=== PATIENT | male | born 1940 | race Caucasian/White ===

== ENCOUNTER 2018-10-05 13:16 | Inpatient (IN) ==
[2018-10-05 14:06] LABS: Basophils % 0.5 % (0.0-0.8); Eosinophils # 0.1 10*3/uL (0.0-0.87); Eosinophils % 1.2 % (0.00-10.9); Hematocrit 28.6 VOL% (42.0-52.0); Hemoglobin 8.6 GM/DL (14.0-18.0); Immature Granulocytes % 0.2 %; Immature Granulocytes Absolute 0.01 #; Lymphocytes # 3.5 10*3/uL (1.4-4.0); Lymphocytes % 60.7 % (21.2-54.2); Mean Corpuscular HGB Conc 30.1 GM/DL (32-36); Mean Corpuscular Volume 97.3 FL (87-102); Mean Platelet Volume 11.4 FL (9.6-12.0); Monocytes % 5.9 % (1.7-12.7); Neutrophils % 31.5 % (38.7-73.9); Platelet Count 132 T/CUMM (130-400); Red Blood Count 2.94 MC/CUMM (3.8-5.5); Red Cell Distribution Width 17.2 % (9.3-17.3); White Blood Count 5.7 T/CUMM (4-12)
[2018-10-05 14:38] LABS: Calcium 9.2 MG/DL (8.5-10.1); Osmolality,Calculated 297.4 MOS/KG (273-304)
[2018-10-05 14:51] LABS: Anisocytosis 2+; Lymphocytes 57 % (20-55); Macrocytosis 2+; Metamyelocytes 1 %; Microcytosis 1+; Platelet Estimate Normal; Segmented Neutrophils 37 % (50-85); Total Cells Counted 100
[2018-10-05] MEDS ORDERED: INSULIN REGULAR 100 UNIT/ML IV ONE (15:00)
[2018-10-05] MEDS ORDERED: DEXTROSE 50% 25 GM/50 ML VIAL IV STA (15:00)
[2018-10-05] MEDS ORDERED: SODIUM BICARBONATE 50 MEQ/50 ML VIAL IV STA (15:00)
[2018-10-05] MEDS ORDERED: DEXTROSE 50% 25 GM/50 ML SYRINGE IV ONE (15:05)
[2018-10-05] MEDS ORDERED: SODIUM BICARBONATE 50 MEQ/50 ML SYRINGE IV ONE (15:07)
[2018-10-05] MEDS ORDERED: ONDANSETRON 4 MG/2 ML VIAL IV PRN (16:20)
[2018-10-05] MEDS ORDERED: SODIUM CHLORIDE 0.9% 1,000 ML IV SCH (16:30)
[2018-10-05] MEDS: SODIUM BICARBONATE 650 MG TABLET PO SCH (22:46)
[2018-10-05] MEDS: FERROUS SULFATE 325 MG TABLET PO SCH (22:46)
[2018-10-06 04:30] LABS: Basophils % 0.6 % (0.0-0.8); Eosinophils # 0.1 10*3/uL (0.0-0.87); Eosinophils % 1.3 % (0.00-10.9); Hematocrit 26.4 VOL% (42.0-52.0); Hemoglobin 7.9 GM/DL (14.0-18.0); Immature Granulocytes % 0.2 %; Immature Granulocytes Absolute 0.01 #; Lymphocytes # 3.4 10*3/uL (1.4-4.0); Lymphocytes % 64.2 % (21.2-54.2); Mean Corpuscular HGB Conc 29.9 GM/DL (32-36); Mean Corpuscular Volume 96.7 FL (87-102); Mean Platelet Volume 11.5 FL (9.6-12.0); Monocytes % 7.5 % (1.7-12.7); Neutrophils % 26.2 % (38.7-73.9); Platelet Count 122 T/CUMM (130-400); Red Blood Count 2.73 MC/CUMM (3.8-5.5); Red Cell Distribution Width 17.2 % (9.3-17.3); White Blood Count 5.3 T/CUMM (4-12)
[2018-10-06 04:54] LABS: Calcium 8.6 MG/DL (8.5-10.1)
[2018-10-06 04:56] LABS: % Iron Saturation 20.5 % (18-50); Ferritin 157.6 ng/ml (26-388)
[2018-10-06 05:03] LABS: Anisocytosis 1+; Atypical Lymphocytes Few; Eosinophils 5 % (0-10); Hypochromasia 1+; Lymphocytes 61 % (20-55); Macrocytosis 1+; Platelet Estimate Adequate; Segmented Neutrophils 26 % (50-85); Total Cells Counted 100
[2018-10-06 06:10] LABS: Folate 3.7 NG/ML (5.4-24.0); Vitamin B12 444 PG/ML (211-911)
[2018-10-06 06:28] LABS: Sedimentation Rate-Westergren 118 MM/HR (0-20)
[2018-10-06] MEDS ORDERED: SODIUM POLYSTYRENE SULFATE 15 GM/60 ML BOTTLE PO SCH (07:00)
[2018-10-06] MEDS ORDERED: TAMSULOSIN 0.4 MG CAPSULE PO SCH (09:00)
[2018-10-06] MEDS: CLOPIDOGREL 75 MG TABLET PO SCH (09:01)
[2018-10-06] MEDS: SODIUM BICARBONATE 650 MG TABLET PO SCH ×3 (09:01→21:32)
[2018-10-06] MEDS: LEVOTHYROXINE 25 MCG TABLET PO SCH (09:01)
[2018-10-06] MEDS: DULoxetine 30 MG CAPSULE PO SCH (09:01)
[2018-10-06] MEDS: ARIPiprazole 10 MG TABLET PO SCH (09:01)
[2018-10-06] MEDS: PANTOPRAZOLE 40 MG TABLET PO SCH (09:02)
[2018-10-06] MEDS: FERROUS SULFATE 325 MG TABLET PO SCH ×2 (09:02→21:32)
[2018-10-06 10:25] LABS: Hemoglobin A1 (Alkaline) 96.7 % (96.5-98.5); Hemoglobin A2 (Alkaline) 3.3 % (1.5-3.5)
[2018-10-06] MEDS: SODIUM BICARB INJ 100 MEQ in DEXTROSE 5% 1,000 ML IV SCH (14:09)
[2018-10-06] MEDS: HYOSCYAMINE 0.125 MG TABLET PO SCH (21:32)
[2018-10-07] MEDS: SODIUM BICARB INJ 100 MEQ in DEXTROSE 5% 1,000 ML IV SCH ×3 (00:08→20:40)
[2018-10-07 05:01] LABS: Basophils % 0.5 % (0.0-0.8); Eosinophils # 0.1 10*3/uL (0.0-0.87); Eosinophils % 1.5 % (0.00-10.9); Hematocrit 26.5 VOL% (42.0-52.0); Lymphocytes % 73.4 % (21.2-54.2); Mean Corpuscular HGB Conc 30.2 GM/DL (32-36); Mean Corpuscular Volume 94.3 FL (87-102); Mean Platelet Volume 11.4 FL (9.6-12.0); Monocytes % 7.4 % (1.7-12.7); Neutrophils % 17.2 % (38.7-73.9); Platelet Count 122 T/CUMM (130-400); Red Blood Count 2.81 MC/CUMM (3.8-5.5); Red Cell Distribution Width 17.1 % (9.3-17.3); White Blood Count 4.1 T/CUMM (4-12)
[2018-10-07 05:25] LABS: Calcium 8.2 MG/DL (8.5-10.1); Osmolality,Calculated 291.4 MOS/KG (273-304)
[2018-10-07 05:53] LABS: Lymphocytes 76 % (20-55); Segmented Neutrophils 23 % (50-85); Total Cells Counted 100
[2018-10-07 05:54] LABS: Hypochromasia 1+; Microcytosis 1+; Platelet Estimate Decreased
[2018-10-07 05:55] LABS: Polychromasia Few
[2018-10-07] MEDS: LEVOTHYROXINE 25 MCG TABLET PO SCH (06:34)
[2018-10-07] MEDS: DULoxetine 30 MG CAPSULE PO SCH (09:06)
[2018-10-07] MEDS: CLOPIDOGREL 75 MG TABLET PO SCH (09:07)
[2018-10-07] MEDS: HYOSCYAMINE 0.125 MG TABLET PO SCH ×4 (09:07→20:40)
[2018-10-07] MEDS: ARIPiprazole 10 MG TABLET PO SCH (09:07)
[2018-10-07] MEDS: amLODIPine 10 MG TABLET PO SCH (09:07)
[2018-10-07] MEDS: PHENAZOPYRIDINE 95 MG TABLET PO SCH ×3 (09:07→18:21)
[2018-10-07] MEDS: FERROUS SULFATE 325 MG TABLET PO SCH ×2 (09:07→20:40)
[2018-10-07] MEDS: TAMSULOSIN 0.4 MG CAPSULE PO SCH ×2 (09:07→20:40)
[2018-10-07] MEDS: ATORVASTATIN 20 MG TABLET PO SCH (09:07)
[2018-10-07] MEDS: SODIUM BICARBONATE 650 MG TABLET PO SCH ×3 (09:07→20:40)
[2018-10-07] MEDS: PANTOPRAZOLE 40 MG TABLET PO SCH (09:07)
[2018-10-07] MEDS: METOPROLOL TARTRATE 25 MG TABLET PO SCH ×2 (11:08→20:41)
[2018-10-08 04:44] LABS: Basophils % 0.8 % (0.0-0.8); Eosinophils # 0.1 10*3/uL (0.0-0.87); Eosinophils % 1.4 % (0.00-10.9); Hematocrit 24.7 VOL% (42.0-52.0); Hemoglobin 7.4 GM/DL (14.0-18.0); Mean Corpuscular Volume 95.7 FL (87-102); Mean Platelet Volume 10.8 FL (9.6-12.0); Monocytes % 9.2 % (1.7-12.7); Neutrophils % 7.6 % (38.7-73.9); Platelet Count 120 T/CUMM (130-400); Red Blood Count 2.58 MC/CUMM (3.8-5.5); Red Cell Distribution Width 16.7 % (9.3-17.3); White Blood Count 3.7 T/CUMM (4-12)
[2018-10-08 05:08] LABS: Eosinophils 8 % (0-10); Lymphocytes 80 % (20-55); Segmented Neutrophils 7 % (50-85); Total Cells Counted 100
[2018-10-08 05:09] LABS: Atypical Lymphocytes Few; Hypochromasia 1+; Microcytosis 1+; Platelet Estimate Decreased
[2018-10-08 05:15] LABS: Calcium 8.2 MG/DL (8.5-10.1); Osmolality,Calculated 285.7 MOS/KG (273-304)
[2018-10-08] MEDS: LEVOTHYROXINE 25 MCG TABLET PO SCH (06:24)
[2018-10-08] MEDS: SODIUM BICARB INJ 100 MEQ in DEXTROSE 5% 1,000 ML IV SCH (08:21)
[2018-10-08] MEDS ORDERED: FOLIC ACID 1 MG TABLET PO SCH (09:00)
[2018-10-08] MEDS ORDERED: ZALEPLON 5 MG CAPSULE PO PRN (10:11)
[2018-10-08] MEDS: PHENAZOPYRIDINE 95 MG TABLET PO SCH ×2 (10:16→12:56)
[2018-10-08] MEDS: DULoxetine 30 MG CAPSULE PO SCH (10:16)
[2018-10-08] MEDS: PANTOPRAZOLE 40 MG TABLET PO SCH (10:17)
[2018-10-08] MEDS: ATORVASTATIN 20 MG TABLET PO SCH (10:17)
[2018-10-08] MEDS: CLOPIDOGREL 75 MG TABLET PO SCH (10:17)
[2018-10-08] MEDS: amLODIPine 10 MG TABLET PO SCH (10:17)
[2018-10-08] MEDS: TAMSULOSIN 0.4 MG CAPSULE PO SCH (10:17)
[2018-10-08] MEDS: FERROUS SULFATE 325 MG TABLET PO SCH (10:17)
[2018-10-08] MEDS: SODIUM BICARBONATE 650 MG TABLET PO SCH (10:17)
[2018-10-08] MEDS: HYOSCYAMINE 0.125 MG TABLET PO SCH ×2 (10:22→12:56)
[2018-10-08] MEDS: METOPROLOL TARTRATE 25 MG TABLET PO SCH (10:23)
[2018-10-08] MEDS: ARIPiprazole 10 MG TABLET PO SCH (10:25)
[2018-10-08] MEDS ORDERED: amLODIPine 5 MG TABLET PO SCH (12:11)
[2018-10-08 13:05] VITALS: BP 136/61
[2018-10-08] MEDS ORDERED: METOPROLOL TARTRATE 50 MG TABLET PO SCH (21:00)
== END 2018-10-08 13:15 | disposition home health service (06) | DRG 683 ==
LOC: N.EDINP 13:16 → N.ED 13:16 → SUATTDRO 16:14 → N.4E 17:41
PROVIDERS: ADMIT Physician Assistant; ATTEND Hospitalist

== ENCOUNTER 2018-10-12 11:43 | Inpatient (IN) ==
[2018-10-12] MEDS ORDERED: SODIUM CHLORIDE 0.9% 500 ML IV STA (12:24)
[2018-10-12 12:31] LABS: Basophils # 0.1 10*3/uL (0.0-0.2); Eosinophils % 0.7 % (0.00-10.9); Hematocrit 23.2 VOL% (42.0-52.0); Hemoglobin 6.8 GM/DL (14.0-18.0); Lymphocytes # 1.7 10*3/uL (1.4-4.0); Mean Corpuscular HGB Conc 29.3 GM/DL (32-36); Mean Corpuscular Volume 97.1 FL (87-102); Mean Platelet Volume 11.1 FL (9.6-12.0); Monocytes % 38.6 % (1.7-12.7); Neutrophils % 2.7 % (38.7-73.9); Platelet Count 140 T/CUMM (130-400); Red Blood Count 2.39 MC/CUMM (3.8-5.5); Red Cell Distribution Width 15.2 % (9.3-17.3)
[2018-10-12 12:40] LABS: Calcium 8.6 MG/DL (8.5-10.1); Osmolality,Calculated 288.7 MOS/KG (273-304)
[2018-10-12 12:55] LABS: Band Neutrophils 1 % (0-10); Eosinophils 4 % (0-10); Lymphocytes 66 % (20-55); Total Cells Counted 100
[2018-10-12 12:56] LABS: Anisocytosis 1+; Platelet Estimate Adequate
[2018-10-12 12:57] LABS: Atypical Lymphocytes Few; Poikilocytosis Slight
[2018-10-12] MEDS ORDERED: PHENAZOPYRIDINE 95 MG TABLET PO PRN (13:24)
[2018-10-12] MEDS ORDERED: HYOSCYAMINE 0.125 MG TABLET PO PRN (13:24)
[2018-10-12 14:04] LABS: Apearance,Urine CLEAR (Clear); Bacteria,Urine Occasional /HPF (Few); Bilirubin,Urine Negative (Negative); Blood, Urine Moderate mg/dL (Negative); Glucose,Urine (UA) Negative (Negative); Ketones,Urine Negative (Negative); Mucus,Urine Occasional /LPF (Occasional); Nitrite,Urine Positive (Negative); Protein,Urine 100 MG/DL; RBC,Urine 35 /HPF (0-4); Urine Color Amber (Yellow); Urine Specific Gravity 1.014 (1.001-1.035); WBC,Urine 4 /HPF (0-6)
[2018-10-12] MEDS: SODIUM CHLORIDE 0.9% 1,000 ML IV SCH (14:14)
[2018-10-12] MEDS: ENOXAPARIN 30 MG/0.3 ML SYRINGE SUBCUT SCH (15:16)
[2018-10-12] MEDS ORDERED: ACETAMINOPHEN 325 MG TABLET PO PRN (15:32)
[2018-10-12] MEDS ORDERED: ONDANSETRON 4 MG/2 ML VIAL IV PRN (15:32)
[2018-10-12] MEDS ORDERED: SODIUM CHLORIDE 0.9% 1,000 ML IV PRN (15:35)
[2018-10-12] MEDS: cefTRIAXone 2,000 MG in SYRINGE 1 EACH IV SCH (16:15)
[2018-10-12] MEDS: TAMSULOSIN 0.4 MG CAPSULE PO SCH (20:38)
[2018-10-12] MEDS: SODIUM BICARBONATE 650 MG TABLET PO SCH (20:38)
[2018-10-12] MEDS: FERROUS SULFATE 325 MG TABLET PO SCH (20:38)
[2018-10-13] MEDS: SODIUM CHLORIDE 0.9% 1,000 ML IV SCH (04:34)
[2018-10-13 04:38] LABS: Basophils # 0.1 10*3/uL (0.0-0.2); Basophils % 1.4 % (0.0-0.8); Eosinophils % 0.3 % (0.00-10.9); Hematocrit 24.7 VOL% (42.0-52.0); Hemoglobin 7.4 GM/DL (14.0-18.0); Immature Granulocytes % 0.8 %; Immature Granulocytes Absolute 0.03 #; Lymphocytes # 2.3 10*3/uL (1.4-4.0); Lymphocytes % 65.2 % (21.2-54.2); Mean Corpuscular Volume 96.1 FL (87-102); Mean Platelet Volume 11.4 FL (9.6-12.0); Monocytes % 28.1 % (1.7-12.7); Neutrophils % 4.2 % (38.7-73.9); Platelet Count 140 T/CUMM (130-400); Red Blood Count 2.57 MC/CUMM (3.8-5.5); Red Cell Distribution Width 15.5 % (9.3-17.3); White Blood Count 3.6 T/CUMM (4-12)
[2018-10-13 05:02] LABS: Eosinophils 4 % (0-10); Hypochromasia 1+; Lymphocytes 69 % (20-55); Platelet Estimate Adequate; Segmented Neutrophils 1 % (50-85); Total Cells Counted 100
[2018-10-13 05:03] LABS: Atypical Lymphocytes Few; Microcytosis Slight; Ovalocytes Slight
[2018-10-13 05:17] LABS: Calcium 8.5 MG/DL (8.5-10.1); Osmolality,Calculated 291.4 MOS/KG (273-304)
[2018-10-13] MEDS: LEVOTHYROXINE 25 MCG TABLET PO SCH (06:01)
[2018-10-13] MEDS: DULoxetine 30 MG CAPSULE PO SCH (09:59)
[2018-10-13] MEDS: FOLIC ACID 1 MG TABLET PO SCH (09:59)
[2018-10-13] MEDS: ENOXAPARIN 30 MG/0.3 ML SYRINGE SUBCUT SCH (09:59)
[2018-10-13] MEDS: ARIPiprazole 10 MG TABLET PO SCH (09:59)
[2018-10-13] MEDS: FERROUS SULFATE 325 MG TABLET PO SCH ×2 (09:59→20:58)
[2018-10-13] MEDS: PANTOPRAZOLE 40 MG TABLET PO SCH (09:59)
[2018-10-13] MEDS: SODIUM BICARBONATE 650 MG TABLET PO SCH ×2 (09:59→20:58)
[2018-10-13] MEDS: cefTRIAXone 2,000 MG in SYRINGE 1 EACH IV SCH (16:20)
[2018-10-13] MEDS ORDERED: ZALEPLON 5 MG CAPSULE PO PRN (17:59)
[2018-10-13] MEDS: TAMSULOSIN 0.4 MG CAPSULE PO SCH (20:58)
[2018-10-14 01:15] LABS: Hematocrit 30.4 VOL% (42.0-52.0); Hemoglobin 9.1 GM/DL (14.0-18.0)
[2018-10-14 05:43] LABS: Basophils # 0.1 10*3/uL (0.0-0.2); Basophils % 1.9 % (0.0-0.8); Eosinophils # 0.2 10*3/uL (0.0-0.87); Eosinophils % 5.6 % (0.00-10.9); Hematocrit 28.9 VOL% (42.0-52.0); Hemoglobin 8.8 GM/DL (14.0-18.0); Immature Granulocytes % 0.8 %; Immature Granulocytes Absolute 0.03 #; Lymphocytes # 2.2 10*3/uL (1.4-4.0); Lymphocytes % 57.6 % (21.2-54.2); Mean Corpuscular HGB Conc 30.4 GM/DL (32-36); Mean Corpuscular Volume 94.4 FL (87-102); Mean Platelet Volume 10.9 FL (9.6-12.0); Neutrophils % 4.1 % (38.7-73.9); Platelet Count 165 T/CUMM (130-400); Red Blood Count 3.06 MC/CUMM (3.8-5.5); Red Cell Distribution Width 15.7 % (9.3-17.3); White Blood Count 3.7 T/CUMM (4-12)
[2018-10-14 06:10] LABS: Eosinophils 11 % (0-10); Hypochromasia 1+; Lymphocytes 55 % (20-55); Platelet Estimate Adequate; Segmented Neutrophils 4 % (50-85); Total Cells Counted 100
[2018-10-14 06:11] LABS: Atypical Lymphocytes Few; Microcytosis Slight
[2018-10-14 06:14] LABS: Calcium 9.1 MG/DL (8.5-10.1); Osmolality,Calculated 287.5 MOS/KG (273-304)
[2018-10-14] MEDS: LEVOTHYROXINE 25 MCG TABLET PO SCH (06:17)
[2018-10-14] MEDS: SODIUM CHLORIDE 0.9% 1,000 ML IV SCH (06:20)
[2018-10-14] MEDS ORDERED: CHOLECALCIFEROL 1,000 UNIT TABLET PO SCH (09:00)
[2018-10-14] MEDS: DULoxetine 30 MG CAPSULE PO SCH (09:39)
[2018-10-14] MEDS: ARIPiprazole 10 MG TABLET PO SCH (09:39)
[2018-10-14] MEDS: FOLIC ACID 1 MG TABLET PO SCH (09:40)
[2018-10-14] MEDS: PANTOPRAZOLE 40 MG TABLET PO SCH (09:40)
[2018-10-14] MEDS: SODIUM BICARBONATE 650 MG TABLET PO SCH (09:40)
[2018-10-14] MEDS: FERROUS SULFATE 325 MG TABLET PO SCH (09:40)
[2018-10-14] MEDS: ENOXAPARIN 30 MG/0.3 ML SYRINGE SUBCUT SCH (09:41)
[2018-10-14 16:13] VITALS: BP 123/64
[2018-10-14] MEDS ORDERED: CEFUROXIME 250 MG TABLET PO SCH (21:00)
== END 2018-10-14 17:33 | disposition home health service (06) | DRG 315 ==
LOC: EDBD → EDUNIT# → N.ED 11:43 → N.EDINP 13:23 → N.4E 15:49
PROVIDERS: ADMIT Hospitalist; ATTEND Hospitalist

== ENCOUNTER 2019-03-13 23:17 | Inpatient (IN) ==
[2019-03-13] MEDS ORDERED: ALBUTEROL/IPRATROPIUM 3 ML NEB RESP TX STA (23:34)
[2019-03-13] MEDS ORDERED: ALBUTEROL 2.5 MG/3 ML NEB RESP TX STA (23:34)
[2019-03-14 00:08] LABS: Basophils % 0.1 % (0.0-0.8); Hematocrit 28.8 VOL% (42.0-52.0); Hemoglobin 8.9 GM/DL (14.0-18.0); Immature Granulocytes % 1.2 %; Immature Granulocytes Absolute 0.32 #; Lymphocytes # 2.3 10*3/uL (1.4-4.0); Lymphocytes % 8.9 % (21.2-54.2); Mean Corpuscular HGB Conc 30.9 GM/DL (32-36); Mean Corpuscular Volume 94.7 FL (87-102); Mean Platelet Volume 11.1 FL (9.6-12.0); Monocytes % 5.7 % (1.7-12.7); Neutrophils % 84.1 % (38.7-73.9); Platelet Count 222 T/CUMM (130-400); Red Blood Count 3.04 MC/CUMM (3.8-5.5); Red Cell Distribution Width 15.5 % (9.3-17.3); White Blood Count 25.6 T/CUMM (4-12)
[2019-03-14] MEDS ORDERED: cefTRIAXone 1,000 MG in SODIUM CHLORIDE 0.9% 100 ML IV STA (00:33)
[2019-03-14 00:38] LABS: Alanine Aminotransferase < 6 U/L (16-61); Albumin 2.8 G/DL (3.4-5.0); Alkaline Phosphatase 98 U/L (45-117); Aspartate Amino Transferase 12 U/L (0-37); Blood Urea Nitrogen 48 MG/DL (7-18); Calcium 8.5 MG/DL (8.5-10.1); Estimated Glom Filtration Rate 22 ML/MIN; Glucose 115 MG/DL (74-106); Osmolality,Calculated 290.5 MOS/KG (273-304); Total Protein 6.9 G/DL (6.4-8.3)
[2019-03-14] MEDS ORDERED: SODIUM CHLORIDE 0.9% 1,000 ML IV STA (00:42)
[2019-03-14 01:26] LABS: Apearance,Urine CLOUDY (Clear); Bacteria,Urine Many /HPF (Few); Bilirubin,Urine Negative (Negative); Blood, Urine Moderate mg/dL (Negative); Glucose,Urine (UA) Negative (Negative); Ketones,Urine Negative (Negative); Nitrite,Urine Negative (Negative); Protein,Urine 30 MG/DL; RBC,Urine 50 /HPF (0-4); Urine Color Amber (Yellow); Urine Specific Gravity 1.011 (1.001-1.035); Urine Urobilinogen < 2.0 EU/DL (0.2-1.0); WBC,Urine 1685 /HPF (0-6)
[2019-03-14 01:33] LABS: Band Neutrophils 2 % (0-10); Eosinophils 2 % (0-10); Lymphocytes 10 % (20-55); Segmented Neutrophils 81 % (50-85); Total Cells Counted 100
[2019-03-14 01:34] LABS: Anisocytosis 1+; Platelet Estimate Adequate
[2019-03-14] MEDS ORDERED: guaiFENesin/DM ER 600-30 MG TABLET PO PRN (02:51)
[2019-03-14] MEDS ORDERED: BISACODYL 5 MG TABLET PO PRN (02:51)
[2019-03-14] MEDS ORDERED: ACETAMINOPHEN 325 MG TABLET PO PRN (02:51)
[2019-03-14] MEDS ORDERED: MORPHINE 4 MG/1 ML VIAL IV PRN (02:51)
[2019-03-14] MEDS ORDERED: NICOTINE 21 MG/24 HR PATCH TRANSDERM PRN (02:51)
[2019-03-14] MEDS ORDERED: diphenhydrAMINE CAP 25 MG CAPSULE PO PRN (02:51)
[2019-03-14] MEDS ORDERED: ONDANSETRON 4 MG/2 ML VIAL IV PRN (02:51)
[2019-03-14] MEDS ORDERED: SODIUM CHLORIDE 0.9% 1,000 ML IV ONE (02:51)
[2019-03-14] MEDS ORDERED: hydrALAZINE 20 MG/1 ML VIAL IV PRN (03:06)
[2019-03-14] MEDS: AZITHROMYCIN INJ 500 MG in SODIUM CHLORIDE 0.9% 250 ML IV SCH (04:16)
[2019-03-14] MEDS: SODIUM CHLORIDE 0.9% 1,000 ML IV SCH ×2 (04:19→18:43)
[2019-03-14] MEDS: OSELTAMIVIR 30 MG CAPSULE PO SCH (05:07)
[2019-03-14 05:17] LABS: Basophils % 0.2 % (0.0-0.8); Hematocrit 27.2 VOL% (42.0-52.0); Hemoglobin 8.2 GM/DL (14.0-18.0); Immature Granulocytes % 1.5 %; Immature Granulocytes Absolute 0.35 #; Lymphocytes % 8.5 % (21.2-54.2); Mean Corpuscular HGB Conc 30.1 GM/DL (32-36); Mean Corpuscular Volume 96.1 FL (87-102); Monocytes % 6.1 % (1.7-12.7); Neutrophils % 83.7 % (38.7-73.9); Platelet Count 193 T/CUMM (130-400); Red Blood Count 2.83 MC/CUMM (3.8-5.5); Red Cell Distribution Width 15.5 % (9.3-17.3); White Blood Count 23.3 T/CUMM (4-12)
[2019-03-14 05:18] LABS: Basophils % 0.1 % (0.0-0.8); Hematocrit 27.3 VOL% (42.0-52.0); Hemoglobin 8.2 GM/DL (14.0-18.0); Immature Granulocytes % 2.4 %; Immature Granulocytes Absolute 0.56 #; Lymphocytes # 2.1 10*3/uL (1.4-4.0); Lymphocytes % 8.9 % (21.2-54.2); Mean Corpuscular Volume 96.1 FL (87-102); Mean Platelet Volume 10.9 FL (9.6-12.0); Monocytes % 5.7 % (1.7-12.7); Neutrophils % 82.9 % (38.7-73.9); Platelet Count 188 T/CUMM (130-400); Red Blood Count 2.84 MC/CUMM (3.8-5.5); Red Cell Distribution Width 15.4 % (9.3-17.3); White Blood Count 23.2 T/CUMM (4-12)
[2019-03-14 05:48] LABS: Hypochromasia 1+; Lymphocytes 12 % (20-55); Platelet Estimate Adequate; Segmented Neutrophils 87 % (50-85); Total Cells Counted 100
[2019-03-14] MEDS ORDERED: VANCOMYCIN INJ 1,250 MG in SODIUM CHLORIDE 0.9% 250 ML IV SCH (06:00)
[2019-03-14 06:09] LABS: Alanine Aminotransferase < 6 U/L (16-61); Albumin 2.4 G/DL (3.4-5.0); Alkaline Phosphatase 89 U/L (45-117); Aspartate Amino Transferase 9 U/L (0-37); Blood Urea Nitrogen 46 MG/DL (7-18); Estimated Glom Filtration Rate 24 ML/MIN; Glucose 101 MG/DL (74-106); Osmolality,Calculated 294.1 MOS/KG (273-304); Total Protein 6.3 G/DL (6.4-8.3)
[2019-03-14 06:32] LABS: Band Neutrophils 2 % (0-10); Hypochromasia 1+; Lymphocytes 8 % (20-55); Microcytosis Slight; Ovalocytes Slight; Segmented Neutrophils 84 % (50-85); Tear Drop Cells Slight; Total Cells Counted 100
[2019-03-14 06:33] LABS: Platelet Estimate Adequate
[2019-03-14 07:40] LABS: Sedimentation Rate-Westergren 119 MM/HR (0-20)
[2019-03-14] MEDS: ALBUTEROL/IPRATROPIUM 3 ML NEB RESP TX SCH ×3 (07:45→19:32)
[2019-03-14 09:36] LABS: Hemoglobin A1 (Alkaline) 97.9 % (96.5-98.5); Hemoglobin A2 (Alkaline) 2.1 % (1.5-3.5)
[2019-03-14 10:14] LABS: Folate 16.5 NG/ML (5.4-24.0); Vitamin B12 865 PG/ML (211-911)
[2019-03-14] MEDS: IMBRUVICA PO SCH (15:57)
[2019-03-15] MEDS: ALBUTEROL/IPRATROPIUM 3 ML NEB RESP TX SCH ×4 (01:25→19:13)
[2019-03-15] MEDS: cefTRIAXone 1,000 MG in SYRINGE 1 EACH IV SCH (02:27)
[2019-03-15] MEDS: AZITHROMYCIN INJ 500 MG in SODIUM CHLORIDE 0.9% 250 ML IV SCH (04:37)
[2019-03-15] MEDS: SODIUM CHLORIDE 0.9% 1,000 ML IV SCH ×2 (04:40→17:17)
[2019-03-15] MEDS: IMBRUVICA PO SCH (08:57)
[2019-03-15] MEDS: OSELTAMIVIR 30 MG CAPSULE PO SCH (08:58)
[2019-03-16] MEDS: ALBUTEROL/IPRATROPIUM 3 ML NEB RESP TX SCH ×2 (00:33→07:05)
[2019-03-16] MEDS: SODIUM CHLORIDE 0.9% 1,000 ML IV SCH (03:32)
[2019-03-16 05:55] LABS: Basophils % 0.2 % (0.0-0.8); Eosinophils % 0.1 % (0.00-10.9); Hematocrit 27.1 VOL% (42.0-52.0); Hemoglobin 8.1 GM/DL (14.0-18.0); Immature Granulocytes % 1.1 %; Immature Granulocytes Absolute 0.15 #; Lymphocytes # 2.2 10*3/uL (1.4-4.0); Lymphocytes % 15.3 % (21.2-54.2); Mean Corpuscular HGB Conc 29.9 GM/DL (32-36); Mean Corpuscular Volume 97.5 FL (87-102); Mean Platelet Volume 11.7 FL (9.6-12.0); Monocytes % 4.5 % (1.7-12.7); Neutrophils % 78.8 % (38.7-73.9); Platelet Count 181 T/CUMM (130-400); Red Blood Count 2.78 MC/CUMM (3.8-5.5); Red Cell Distribution Width 15.6 % (9.3-17.3); White Blood Count 14.2 T/CUMM (4-12)
[2019-03-16] MEDS: IMBRUVICA PO SCH (09:05)
[2019-03-16] MEDS: OSELTAMIVIR 30 MG CAPSULE PO SCH (09:05)
[2019-03-16] MEDS: cefTRIAXone 1,000 MG in SYRINGE 1 EACH IV SCH (09:05)
[2019-03-16 12:08] VITALS: BP 141/77
[2019-03-17] MEDS ORDERED: CEFDINIR 300 MG CAPSULE PO SCH (09:00)
== END 2019-03-16 12:28 | disposition home health service (06) | DRG 194 ==
LOC: N.ED 23:17 → N.EDINP 03-14 02:51 → N.2E 03-14 03:46
PROVIDERS: ADMIT Internal Medicine; ATTEND Internal Medicine

== ENCOUNTER 2019-03-31 06:42 | Inpatient (IN) ==
[2019-03-31 08:32] LABS: Apearance,Urine CLOUDY (Clear); Bacteria,Urine Many /HPF (Few); Bilirubin,Urine Negative (Negative); Blood, Urine Small mg/dL (Negative); Glucose,Urine (UA) Negative (Negative); Ketones,Urine Negative (Negative); Nitrite,Urine Negative (Negative); Protein,Urine 30 MG/DL; RBC,Urine 12 /HPF (0-4); Urine Color Yellow (Yellow); Urine Specific Gravity 1.008 (1.001-1.035); Urine Urobilinogen < 2.0 EU/DL (0.2-1.0); WBC,Urine 2402 /HPF (0-6)
[2019-03-31] MEDS ORDERED: cefTRIAXone 1,000 MG in SODIUM CHLORIDE 0.9% 100 ML IV STA (08:43)
[2019-03-31] MEDS ORDERED: SODIUM CHLORIDE 0.9% 500 ML IV STA (08:43)
[2019-03-31 09:40] LABS: Basophils % 0.3 % (0.0-0.8); Immature Granulocytes Absolute 0.09 #; Lymphocytes # 1.3 10*3/uL (1.4-4.0); Lymphocytes % 13.7 % (21.2-54.2); Mean Corpuscular HGB Conc 30.3 GM/DL (32-36); Monocytes % 13.5 % (1.7-12.7); Neutrophils % 71.5 % (38.7-73.9); Platelet Count 140 T/CUMM (130-400); White Blood Count 9.3 T/CUMM (4-12)
[2019-03-31 09:41] LABS: Alanine Aminotransferase < 6 U/L (16-61); Albumin 2.8 G/DL (3.4-5.0); Alkaline Phosphatase 96 U/L (45-117); Aspartate Amino Transferase 6 U/L (0-37); Blood Urea Nitrogen 48 MG/DL (7-18); Calcium 8.7 MG/DL (8.5-10.1); Estimated Glom Filtration Rate 16 ML/MIN; Glucose 111 MG/DL (74-106); Hemoglobin 11.5 GM/DL (14.0-18.0); Osmolality,Calculated 292.4 MOS/KG (273-304); Total Protein 6.8 G/DL (6.4-8.3)
[2019-03-31] MEDS ORDERED: MORPHINE 4 MG/1 ML VIAL IV PRN (10:13)
[2019-03-31] MEDS ORDERED: SODIUM CHLORIDE 0.9% 1,000 ML IV SCH (10:30)
[2019-03-31] MEDS ORDERED: PANTOPRAZOLE 40 MG TABLET PO SCH (10:30)
[2019-03-31] MEDS ORDERED: FUROSEMIDE 20 MG/2 ML VIAL IV STA (10:48)
[2019-03-31] MEDS: ENOXAPARIN 30 MG/0.3 ML SYRINGE SUBCUT SCH (11:11)
[2019-03-31] MEDS: MEROPENEM 500 MG in SODIUM CHLORIDE 0.9% 100 ML IV SCH ×2 (11:12→22:55)
[2019-03-31] MEDS: FERROUS SULFATE 325 MG TABLET PO SCH (16:35)
[2019-03-31] MEDS ORDERED: NON-FORMULARY MEDICATION (Turmeric Root Extract 500 MG) PO SCH (21:00)
[2019-03-31] MEDS: TAMSULOSIN 0.4 MG CAPSULE PO SCH (22:55)
[2019-03-31] MEDS: METOPROLOL TARTRATE 25 MG TABLET PO SCH (22:55)
[2019-04-01 05:51] LABS: Basophils % 0.3 % (0.0-0.8); Calcium 8.2 MG/DL (8.5-10.1); Eosinophils % 0.2 % (0.00-10.9); Hematocrit 26.7 VOL% (42.0-52.0); Immature Granulocytes % 1.3 %; Immature Granulocytes Absolute 0.15 #; Lymphocytes # 2.1 10*3/uL (1.4-4.0); Lymphocytes % 18.4 % (21.2-54.2); Mean Corpuscular HGB Conc 30.3 GM/DL (32-36); Mean Corpuscular Volume 95.7 FL (87-102); Mean Platelet Volume 11.8 FL (9.6-12.0); Monocytes % 13.4 % (1.7-12.7); Neutrophils % 66.4 % (38.7-73.9); Osmolality,Calculated 288.5 MOS/KG (273-304); Red Cell Distribution Width 15.9 % (9.3-17.3); White Blood Count 11.5 T/CUMM (4-12)
[2019-04-01 05:53] LABS: Hemoglobin 8.1 GM/DL (14.0-18.0); Red Blood Count 2.79 MC/CUMM (3.8-5.5)
[2019-04-01 05:54] LABS: Platelet Count 175 T/CUMM (130-400)
[2019-04-01] MEDS: LEVOTHYROXINE 25 MCG TABLET PO SCH (06:13)
[2019-04-01] MEDS ORDERED: POTASSIUM CHLORIDE 20 MEQ TABLET PO ONE (08:00)
[2019-04-01] MEDS: CLOPIDOGREL 75 MG TABLET PO SCH (09:33)
[2019-04-01] MEDS: DULoxetine 30 MG CAPSULE PO SCH (09:33)
[2019-04-01] MEDS: METOPROLOL SUCCINATE XL 50 MG TABLET PO SCH (09:33)
[2019-04-01] MEDS: PANTOPRAZOLE 40 MG TABLET PO SCH (09:33)
[2019-04-01] MEDS: ARIPiprazole 10 MG TABLET PO SCH (09:33)
[2019-04-01] MEDS: ATORVASTATIN 20 MG TABLET PO SCH (09:33)
[2019-04-01] MEDS: MEROPENEM 500 MG in SODIUM CHLORIDE 0.9% 100 ML IV SCH ×2 (09:34→21:49)
[2019-04-01] MEDS: CHOLECALCIFEROL 1,000 UNIT TABLET PO SCH (09:34)
[2019-04-01] MEDS: ENOXAPARIN 30 MG/0.3 ML SYRINGE SUBCUT SCH (09:34)
[2019-04-01] MEDS: amLODIPine 5 MG TABLET PO SCH (09:34)
[2019-04-01] MEDS: allopurinoL 100 MG TABLET PO SCH (09:34)
[2019-04-01] MEDS: Ibrutinib [Imbruvica] 140 MG PO SCH (09:41)
[2019-04-01] MEDS: FLUTICASONE 50 MCG NASAL SPRAY 16 GM BOTTLE BOTH NARES SCH (09:42)
[2019-04-01] MEDS: FERROUS SULFATE 325 MG TABLET PO SCH ×2 (09:44→18:01)
[2019-04-01] MEDS: HYOSCYAMINE 0.125 MG TABLET PO SCH (09:44)
[2019-04-01] MEDS: FOLIC ACID 1 MG TABLET PO SCH (09:46)
[2019-04-01] MEDS: METOPROLOL TARTRATE 25 MG TABLET PO SCH ×2 (09:50→20:52)
[2019-04-01] MEDS ORDERED: TUBERCULIN SKIN TEST 0.1 ML SYRINGE INTRADERM ONE (18:21)
[2019-04-01] MEDS: TAMSULOSIN 0.4 MG CAPSULE PO SCH (20:52)
[2019-04-02] MEDS: LEVOTHYROXINE 25 MCG TABLET PO SCH (06:37)
[2019-04-02 06:51] LABS: Calcium 8.4 MG/DL (8.5-10.1); Osmolality,Calculated 291.3 MOS/KG (273-304)
[2019-04-02] MEDS: amLODIPine 5 MG TABLET PO SCH (08:20)
[2019-04-02] MEDS: ATORVASTATIN 20 MG TABLET PO SCH (08:20)
[2019-04-02] MEDS: CLOPIDOGREL 75 MG TABLET PO SCH (08:20)
[2019-04-02] MEDS: HYOSCYAMINE 0.125 MG TABLET PO SCH (08:20)
[2019-04-02] MEDS: DULoxetine 30 MG CAPSULE PO SCH (08:20)
[2019-04-02] MEDS: METOPROLOL TARTRATE 25 MG TABLET PO SCH ×2 (08:20→20:35)
[2019-04-02] MEDS: METOPROLOL SUCCINATE XL 50 MG TABLET PO SCH (08:20)
[2019-04-02] MEDS: allopurinoL 100 MG TABLET PO SCH (08:20)
[2019-04-02] MEDS: FERROUS SULFATE 325 MG TABLET PO SCH ×2 (08:20→16:20)
[2019-04-02] MEDS: PANTOPRAZOLE 40 MG TABLET PO SCH (08:20)
[2019-04-02] MEDS: CHOLECALCIFEROL 1,000 UNIT TABLET PO SCH (08:20)
[2019-04-02] MEDS: ARIPiprazole 10 MG TABLET PO SCH (08:20)
[2019-04-02] MEDS: FOLIC ACID 1 MG TABLET PO SCH (08:20)
[2019-04-02] MEDS: Ibrutinib [Imbruvica] 140 MG PO SCH (08:24)
[2019-04-02] MEDS: FLUTICASONE 50 MCG NASAL SPRAY 16 GM BOTTLE BOTH NARES SCH (08:24)
[2019-04-02] MEDS: LACTATED RINGERS 1,000 ML IV SCH ×2 (09:32→20:35)
[2019-04-02] MEDS: FOSFOMYCIN 3 GM PACK PO SCH (09:32)
[2019-04-02] MEDS: ENOXAPARIN 30 MG/0.3 ML SYRINGE SUBCUT SCH (11:27)
[2019-04-02] MEDS: GENTAMICIN 240 MG BLADDERIRR SCH (13:56)
[2019-04-02] MEDS: SODIUM CHLORIDE 0.9% BLADDERIRR SCH (13:56)
[2019-04-02] MEDS: TAMSULOSIN 0.4 MG CAPSULE PO SCH (20:35)
[2019-04-03] MEDS: GENTAMICIN 240 MG BLADDERIRR SCH ×2 (03:23→14:15)
[2019-04-03] MEDS: SODIUM CHLORIDE 0.9% BLADDERIRR SCH ×2 (03:23→14:15)
[2019-04-03] MEDS: LEVOTHYROXINE 25 MCG TABLET PO SCH (05:36)
[2019-04-03] MEDS: LACTATED RINGERS 1,000 ML IV SCH ×2 (05:36→14:28)
[2019-04-03 05:44] LABS: Basophils % 0.3 % (0.0-0.8); Eosinophils # 0.1 10*3/uL (0.0-0.87); Eosinophils % 0.5 % (0.00-10.9); Hemoglobin 8.5 GM/DL (14.0-18.0); Immature Granulocytes % 1.7 %; Immature Granulocytes Absolute 0.18 #; Lymphocytes # 3.3 10*3/uL (1.4-4.0); Mean Corpuscular HGB Conc 29.3 GM/DL (32-36); Mean Corpuscular Volume 97.3 FL (87-102); Mean Platelet Volume 11.7 FL (9.6-12.0); Neutrophils % 56.5 % (38.7-73.9); Platelet Count 206 T/CUMM (130-400); Red Blood Count 2.98 MC/CUMM (3.8-5.5); Red Cell Distribution Width 15.7 % (9.3-17.3); White Blood Count 10.6 T/CUMM (4-12)
[2019-04-03 05:48] LABS: Calcium 8.4 MG/DL (8.5-10.1); Osmolality,Calculated 286.4 MOS/KG (273-304)
[2019-04-03] MEDS: ARIPiprazole 10 MG TABLET PO SCH (08:53)
[2019-04-03] MEDS: FOLIC ACID 1 MG TABLET PO SCH (08:53)
[2019-04-03] MEDS: FERROUS SULFATE 325 MG TABLET PO SCH ×2 (08:53→17:00)
[2019-04-03] MEDS: FLUTICASONE 50 MCG NASAL SPRAY 16 GM BOTTLE BOTH NARES SCH (08:53)
[2019-04-03] MEDS: DULoxetine 30 MG CAPSULE PO SCH (08:53)
[2019-04-03] MEDS: CHOLECALCIFEROL 1,000 UNIT TABLET PO SCH (08:54)
[2019-04-03] MEDS: METOPROLOL TARTRATE 25 MG TABLET PO SCH ×2 (08:54→20:23)
[2019-04-03] MEDS: Ibrutinib [Imbruvica] 140 MG PO SCH (08:54)
[2019-04-03] MEDS: ATORVASTATIN 20 MG TABLET PO SCH (08:54)
[2019-04-03] MEDS: HYOSCYAMINE 0.125 MG TABLET PO SCH (08:54)
[2019-04-03] MEDS: allopurinoL 100 MG TABLET PO SCH (08:54)
[2019-04-03] MEDS: METOPROLOL SUCCINATE XL 50 MG TABLET PO SCH (08:54)
[2019-04-03] MEDS: PANTOPRAZOLE 40 MG TABLET PO SCH (08:54)
[2019-04-03] MEDS: CLOPIDOGREL 75 MG TABLET PO SCH (08:54)
[2019-04-03] MEDS: amLODIPine 5 MG TABLET PO SCH (08:54)
[2019-04-03] MEDS: ENOXAPARIN 30 MG/0.3 ML SYRINGE SUBCUT SCH (10:04)
[2019-04-03] MEDS: TAMSULOSIN 0.4 MG CAPSULE PO SCH (20:23)
[2019-04-04] MEDS: SODIUM CHLORIDE 0.9% BLADDERIRR SCH ×2 (02:53→16:33)
[2019-04-04] MEDS: GENTAMICIN 240 MG BLADDERIRR SCH ×2 (02:53→16:33)
[2019-04-04 05:05] LABS: Basophils % 0.3 % (0.0-0.8); Eosinophils # 0.1 10*3/uL (0.0-0.87); Eosinophils % 0.6 % (0.00-10.9); Hematocrit 28.2 VOL% (42.0-52.0); Hemoglobin 8.3 GM/DL (14.0-18.0); Immature Granulocytes % 1.1 %; Immature Granulocytes Absolute 0.12 #; Lymphocytes # 2.7 10*3/uL (1.4-4.0); Mean Corpuscular HGB Conc 29.4 GM/DL (32-36); Mean Corpuscular Volume 95.9 FL (87-102); Mean Platelet Volume 11.3 FL (9.6-12.0); Monocytes % 7.4 % (1.7-12.7); Neutrophils % 66.6 % (38.7-73.9); Platelet Count 194 T/CUMM (130-400); Red Blood Count 2.94 MC/CUMM (3.8-5.5); Red Cell Distribution Width 15.9 % (9.3-17.3); White Blood Count 11.3 T/CUMM (4-12)
[2019-04-04 05:18] LABS: Calcium 8.4 MG/DL (8.5-10.1); Osmolality,Calculated 286.4 MOS/KG (273-304)
[2019-04-04] MEDS: LEVOTHYROXINE 25 MCG TABLET PO SCH (05:47)
[2019-04-04] MEDS: ATORVASTATIN 20 MG TABLET PO SCH (08:48)
[2019-04-04] MEDS: HYOSCYAMINE 0.125 MG TABLET PO SCH (08:48)
[2019-04-04] MEDS: amLODIPine 5 MG TABLET PO SCH (08:49)
[2019-04-04] MEDS: FERROUS SULFATE 325 MG TABLET PO SCH ×2 (08:49→16:35)
[2019-04-04] MEDS: Ibrutinib [Imbruvica] 140 MG PO SCH (08:49)
[2019-04-04] MEDS: CLOPIDOGREL 75 MG TABLET PO SCH (08:49)
[2019-04-04] MEDS: DULoxetine 30 MG CAPSULE PO SCH (08:49)
[2019-04-04] MEDS: METOPROLOL TARTRATE 25 MG TABLET PO SCH ×2 (08:49→21:52)
[2019-04-04] MEDS: FOLIC ACID 1 MG TABLET PO SCH (08:49)
[2019-04-04] MEDS: ARIPiprazole 10 MG TABLET PO SCH (08:49)
[2019-04-04] MEDS: CHOLECALCIFEROL 1,000 UNIT TABLET PO SCH (08:49)
[2019-04-04] MEDS: PANTOPRAZOLE 40 MG TABLET PO SCH (08:49)
[2019-04-04] MEDS: allopurinoL 100 MG TABLET PO SCH (08:49)
[2019-04-04] MEDS: FLUTICASONE 50 MCG NASAL SPRAY 16 GM BOTTLE BOTH NARES SCH (08:50)
[2019-04-04] MEDS: METOPROLOL SUCCINATE XL 50 MG TABLET PO SCH (09:36)
[2019-04-04] MEDS: ENOXAPARIN 30 MG/0.3 ML SYRINGE SUBCUT SCH (09:37)
[2019-04-04] MEDS: LACTATED RINGERS 1,000 ML IV SCH (10:30)
[2019-04-04] MEDS: TAMSULOSIN 0.4 MG CAPSULE PO SCH (21:52)
[2019-04-05] MEDS: GENTAMICIN 240 MG BLADDERIRR SCH ×2 (03:25→14:31)
[2019-04-05] MEDS: SODIUM CHLORIDE 0.9% BLADDERIRR SCH ×2 (03:25→14:31)
[2019-04-05 05:56] LABS: Basophils % 0.4 % (0.0-0.8); Eosinophils # 0.1 10*3/uL (0.0-0.87); Eosinophils % 1.3 % (0.00-10.9); Hematocrit 26.8 VOL% (42.0-52.0); Hemoglobin 7.9 GM/DL (14.0-18.0); Lymphocytes # 3.2 10*3/uL (1.4-4.0); Lymphocytes % 33.9 % (21.2-54.2); Mean Corpuscular HGB Conc 29.5 GM/DL (32-36); Mean Corpuscular Volume 96.1 FL (87-102); Mean Platelet Volume 11.3 FL (9.6-12.0); Monocytes % 7.2 % (1.7-12.7); Neutrophils % 56.2 % (38.7-73.9); Platelet Count 177 T/CUMM (130-400); Red Blood Count 2.79 MC/CUMM (3.8-5.5); Red Cell Distribution Width 15.9 % (9.3-17.3); White Blood Count 9.6 T/CUMM (4-12)
[2019-04-05] MEDS: LEVOTHYROXINE 25 MCG TABLET PO SCH (05:57)
[2019-04-05 07:40] LABS: Calcium 8.3 MG/DL (8.5-10.1); Osmolality,Calculated 288.1 MOS/KG (273-304)
[2019-04-05] MEDS: ARIPiprazole 10 MG TABLET PO SCH (09:54)
[2019-04-05] MEDS: amLODIPine 5 MG TABLET PO SCH (09:54)
[2019-04-05] MEDS: allopurinoL 100 MG TABLET PO SCH (09:54)
[2019-04-05] MEDS: ENOXAPARIN 30 MG/0.3 ML SYRINGE SUBCUT SCH (09:54)
[2019-04-05] MEDS: DULoxetine 30 MG CAPSULE PO SCH (09:54)
[2019-04-05] MEDS: ATORVASTATIN 20 MG TABLET PO SCH (09:54)
[2019-04-05] MEDS: PANTOPRAZOLE 40 MG TABLET PO SCH (09:55)
[2019-04-05] MEDS: METOPROLOL SUCCINATE XL 50 MG TABLET PO SCH (09:55)
[2019-04-05] MEDS: FOLIC ACID 1 MG TABLET PO SCH (09:55)
[2019-04-05] MEDS: CLOPIDOGREL 75 MG TABLET PO SCH (09:55)
[2019-04-05] MEDS: FERROUS SULFATE 325 MG TABLET PO SCH ×2 (09:55→17:20)
[2019-04-05] MEDS: CHOLECALCIFEROL 1,000 UNIT TABLET PO SCH (09:55)
[2019-04-05] MEDS: FOSFOMYCIN 3 GM PACK PO SCH (10:14)
[2019-04-05] MEDS: FLUTICASONE 50 MCG NASAL SPRAY 16 GM BOTTLE BOTH NARES SCH (10:14)
[2019-04-05] MEDS: Ibrutinib [Imbruvica] 140 MG PO SCH (10:14)
[2019-04-05] MEDS: METOPROLOL TARTRATE 25 MG TABLET PO SCH ×2 (11:30→21:38)
[2019-04-05] MEDS ORDERED: ACETAMINOPHEN 325 MG TABLET PO PRN (18:55)
[2019-04-05] MEDS: TAMSULOSIN 0.4 MG CAPSULE PO SCH (21:38)
[2019-04-06] MEDS: GENTAMICIN 240 MG BLADDERIRR SCH ×2 (02:38→14:07)
[2019-04-06] MEDS: SODIUM CHLORIDE 0.9% BLADDERIRR SCH ×2 (02:38→14:07)
[2019-04-06 05:21] LABS: Basophils # 0.1 10*3/uL (0.0-0.2); Basophils % 0.4 % (0.0-0.8); Eosinophils # 0.2 10*3/uL (0.0-0.87); Eosinophils % 1.5 % (0.00-10.9); Hematocrit 27.5 VOL% (42.0-52.0); Immature Granulocytes % 0.7 %; Immature Granulocytes Absolute 0.08 #; Lymphocytes # 4.2 10*3/uL (1.4-4.0); Lymphocytes % 36.6 % (21.2-54.2); Mean Corpuscular HGB Conc 29.1 GM/DL (32-36); Mean Corpuscular Volume 96.8 FL (87-102); Mean Platelet Volume 11.5 FL (9.6-12.0); Monocytes % 8.6 % (1.7-12.7); Neutrophils % 52.2 % (38.7-73.9); Platelet Count 215 T/CUMM (130-400); Red Blood Count 2.84 MC/CUMM (3.8-5.5); Red Cell Distribution Width 15.9 % (9.3-17.3); White Blood Count 11.4 T/CUMM (4-12)
[2019-04-06 05:34] LABS: Calcium 7.9 MG/DL (8.5-10.1)
[2019-04-06 05:35] LABS: Osmolality,Calculated 287.3 MOS/KG (273-304)
[2019-04-06] MEDS: LEVOTHYROXINE 25 MCG TABLET PO SCH (05:44)
[2019-04-06] MEDS: Ibrutinib [Imbruvica] 140 MG PO SCH (08:39)
[2019-04-06] MEDS: DULoxetine 30 MG CAPSULE PO SCH (08:40)
[2019-04-06] MEDS: ATORVASTATIN 20 MG TABLET PO SCH (08:40)
[2019-04-06] MEDS: METOPROLOL SUCCINATE XL 50 MG TABLET PO SCH (08:40)
[2019-04-06] MEDS: FERROUS SULFATE 325 MG TABLET PO SCH (08:40)
[2019-04-06] MEDS: FOLIC ACID 1 MG TABLET PO SCH (08:40)
[2019-04-06] MEDS: METOPROLOL TARTRATE 25 MG TABLET PO SCH (08:40)
[2019-04-06] MEDS: PANTOPRAZOLE 40 MG TABLET PO SCH (08:40)
[2019-04-06] MEDS: CHOLECALCIFEROL 1,000 UNIT TABLET PO SCH (08:40)
[2019-04-06] MEDS: amLODIPine 5 MG TABLET PO SCH (08:40)
[2019-04-06] MEDS: CLOPIDOGREL 75 MG TABLET PO SCH (08:41)
[2019-04-06] MEDS: allopurinoL 100 MG TABLET PO SCH (08:41)
[2019-04-06] MEDS: FLUTICASONE 50 MCG NASAL SPRAY 16 GM BOTTLE BOTH NARES SCH (08:41)
[2019-04-06] MEDS: ARIPiprazole 10 MG TABLET PO SCH (08:41)
[2019-04-06] MEDS: ENOXAPARIN 30 MG/0.3 ML SYRINGE SUBCUT SCH (10:07)
[2019-04-06 16:29] VITALS: BP 110/79
== END 2019-04-06 18:38 | disposition home health service (06) | DRG 689 ==
LOC: N.ED 06:42 → N.EDINP 06:42 → N.5E 11:37 → SUATTDRO 04-01 10:15
PROVIDERS: ADMIT Family Medicine; ATTEND Internal Medicine

== ENCOUNTER 2019-04-18 12:11 | Inpatient (IN) ==
[2019-04-18 13:25] LABS: Basophils # 0.1 10*3/uL (0.0-0.2); Basophils % 1.1 % (0.0-0.8); Eosinophils # 0.1 10*3/uL (0.0-0.87); Eosinophils % 1.6 % (0.00-10.9); Hematocrit 26.2 VOL% (42.0-52.0); Hemoglobin 7.8 GM/DL (14.0-18.0); Immature Granulocytes % 0.4 %; Immature Granulocytes Absolute 0.03 #; Lymphocytes # 3.3 10*3/uL (1.4-4.0); Lymphocytes % 43.5 % (21.2-54.2); Mean Corpuscular HGB Conc 29.8 GM/DL (32-36); Mean Corpuscular Volume 98.9 FL (87-102); Neutrophils % 45.4 % (38.7-73.9); Platelet Count 121 T/CUMM (130-400); Red Blood Count 2.65 MC/CUMM (3.8-5.5); Red Cell Distribution Width 17.2 % (9.3-17.3); White Blood Count 7.5 T/CUMM (4-12)
[2019-04-18 13:44] LABS: INR 0.9; PT Patient Result 10.3 SECS (9.6-12.2); Partial Thromboplastin Time 28.5 SECS (20.8-36.0)
[2019-04-18 13:44] LABS: Apearance,Urine CLOUDY (Clear); Bacteria,Urine Moderate /HPF (Few); Bilirubin,Urine Negative (Negative); Blood, Urine Small mg/dL (Negative); Glucose,Urine (UA) Negative (Negative); Ketones,Urine Negative (Negative); Nitrite,Urine Positive (Negative); Protein,Urine 30 MG/DL; RBC,Urine 9 /HPF (0-4); Squamous Epithelial Cell,Urine Occasional /HPF (0-10); Urine Color Yellow (Yellow); Urine Specific Gravity 1.011 (1.001-1.035); Urine Urobilinogen < 2.0 EU/DL (0.2-1.0); WBC,Urine 675 /HPF (0-6)
[2019-04-18 13:47] LABS: Alanine Aminotransferase < 9 U/L (16-61); Alkaline Phosphatase 90 U/L (45-117); Aspartate Amino Transferase 4 U/L (0-37); Blood Urea Nitrogen 36 MG/DL (7-18); Calcium 8.9 MG/DL (8.5-10.1); Estimated Glom Filtration Rate 21 ML/MIN; Glucose 83 MG/DL (74-106); Osmolality,Calculated 279.8 MOS/KG (273-304); Total Protein 6.6 G/DL (6.4-8.3)
[2019-04-18] MEDS ORDERED: cefOXitin 1,000 MG in SODIUM CHLORIDE 0.9% 100 ML IV STA (14:15)
[2019-04-18] MEDS ORDERED: SIMETHICONE CHEW 125 MG TABLET PO PRN (15:52)
[2019-04-18] MEDS ORDERED: ACETAMINOPHEN 325 MG TABLET PO PRN (15:52)
[2019-04-18] MEDS ORDERED: hydrALAZINE 20 MG/1 ML VIAL IV PRN (15:52)
[2019-04-18] MEDS ORDERED: ONDANSETRON 4 MG/2 ML VIAL IV PRN (15:52)
[2019-04-18] MEDS ORDERED: DOCUSATE SODIUM 100 MG CAPSULE PO PRN (15:52)
[2019-04-18] MEDS ORDERED: ENOXAPARIN 40 MG/0.4 ML SYRINGE SUBCUT ONE (16:00)
[2019-04-18] MEDS ORDERED: HYOSCYAMINE 0.125 MG TABLET PO PRN (16:01)
[2019-04-18] MEDS ORDERED: MEROPENEM 500 MG VIAL ONE (16:49)
[2019-04-18] MEDS ORDERED: SODIUM CHLORIDE 0.9% 100 ML IV ONE (16:50)
[2019-04-18] MEDS: SODIUM CHLORIDE 0.9% 1,000 ML IV SCH (16:58)
[2019-04-18] MEDS: MEROPENEM 500 MG in SODIUM CHLORIDE 0.9% 100 ML IV SCH (17:01)
[2019-04-18] MEDS: TAMSULOSIN 0.4 MG CAPSULE PO SCH (22:04)
[2019-04-18] MEDS: Ibrutinib [Imbruvica] 140 MG PO SCH (22:05)
[2019-04-18 23:18] LABS: Apearance,Urine CLOUDY (Clear); Bilirubin,Urine Negative (Negative); Blood, Urine Moderate mg/dL (Negative); Glucose,Urine (UA) 50 mg/dL (Negative); Ketones,Urine Negative (Negative); Mucus,Urine Few /LPF (Occasional); Nitrite,Urine Positive (Negative); Protein,Urine 100 MG/DL; RBC,Urine 670 /HPF (0-4); Urine Color Yellow (Yellow); Urine Specific Gravity 1.012 (1.001-1.035); Urine Urobilinogen < 2.0 EU/DL (0.2-1.0); WBC,Urine 26636 /HPF (0-6)
[2019-04-19] MEDS: SODIUM CHLORIDE 0.9% 1,000 ML IV SCH ×3 (04:49→20:09)
[2019-04-19] MEDS: MEROPENEM 500 MG in SODIUM CHLORIDE 0.9% 100 ML IV SCH ×2 (04:50→16:54)
[2019-04-19 05:02] LABS: Basophils # 0.1 10*3/uL (0.0-0.2); Basophils % 0.7 % (0.0-0.8); Eosinophils # 0.1 10*3/uL (0.0-0.87); Eosinophils % 1.1 % (0.00-10.9); Hematocrit 24.3 VOL% (42.0-52.0); Hemoglobin 7.3 GM/DL (14.0-18.0); Immature Granulocytes % 0.4 %; Immature Granulocytes Absolute 0.03 #; Lymphocytes # 3.2 10*3/uL (1.4-4.0); Lymphocytes % 44.2 % (21.2-54.2); Mean Platelet Volume 12.6 FL (9.6-12.0); Monocytes % 8.2 % (1.7-12.7); Neutrophils % 45.4 % (38.7-73.9); Platelet Count 109 T/CUMM (130-400); Red Blood Count 2.48 MC/CUMM (3.8-5.5); White Blood Count 7.2 T/CUMM (4-12)
[2019-04-19 05:44] LABS: Calcium 8.1 MG/DL (8.5-10.1); Osmolality,Calculated 286.4 MOS/KG (273-304)
[2019-04-19] MEDS: LEVOTHYROXINE 25 MCG TABLET PO SCH (06:25)
[2019-04-19] MEDS ORDERED: SODIUM CHLORIDE 0.9% 1,000 ML IV PRN (07:40)
[2019-04-19] MEDS: FLUTICASONE 50 MCG NASAL SPRAY 16 GM BOTTLE BOTH NARES SCH (09:02)
[2019-04-19] MEDS: CHOLECALCIFEROL 1,000 UNIT TABLET PO SCH (09:04)
[2019-04-19] MEDS: ARIPiprazole 10 MG TABLET PO SCH (09:04)
[2019-04-19] MEDS: METOPROLOL SUCCINATE XL 50 MG TABLET PO SCH (09:04)
[2019-04-19] MEDS: FOLIC ACID 1 MG TABLET PO SCH (09:04)
[2019-04-19] MEDS: DULoxetine 30 MG CAPSULE PO SCH (09:04)
[2019-04-19] MEDS: CLOPIDOGREL 75 MG TABLET PO SCH (09:04)
[2019-04-19] MEDS: ATORVASTATIN 20 MG TABLET PO SCH (09:04)
[2019-04-19] MEDS: PANTOPRAZOLE 40 MG TABLET PO SCH (09:05)
[2019-04-19] MEDS: Ibrutinib [Imbruvica] 140 MG PO SCH ×3 (09:05→20:09)
[2019-04-19] MEDS: amLODIPine 5 MG TABLET PO SCH (09:05)
[2019-04-19 16:12] LABS: Misc Morphology 23
[2019-04-19] MEDS: ENOXAPARIN 30 MG/0.3 ML SYRINGE SUBCUT SCH (16:53)
[2019-04-19] MEDS: TAMSULOSIN 0.4 MG CAPSULE PO SCH (20:09)
[2019-04-20] MEDS: MEROPENEM 500 MG in SODIUM CHLORIDE 0.9% 100 ML IV SCH (05:48)
[2019-04-20] MEDS: SODIUM CHLORIDE 0.9% 1,000 ML IV SCH ×3 (05:49→21:06)
[2019-04-20] MEDS: LEVOTHYROXINE 25 MCG TABLET PO SCH (05:49)
[2019-04-20 07:26] LABS: Basophils # 0.1 10*3/uL (0.0-0.2); Basophils % 0.8 % (0.0-0.8); Eosinophils # 0.1 10*3/uL (0.0-0.87); Eosinophils % 0.8 % (0.00-10.9); Hematocrit 32.2 VOL% (42.0-52.0); Lymphocytes # 4.4 10*3/uL (1.4-4.0); Lymphocytes % 45.6 % (21.2-54.2); Mean Corpuscular HGB Conc 30.4 GM/DL (32-36); Monocytes % 8.6 % (1.7-12.7); Neutrophils % 43.2 % (38.7-73.9); Red Cell Distribution Width 17.4 % (9.3-17.3)
[2019-04-20 07:33] LABS: Hemoglobin 9.8 GM/DL (14.0-18.0); Red Blood Count 3.39 MC/CUMM (3.8-5.5); White Blood Count 9.6 T/CUMM (4-12)
[2019-04-20 07:34] LABS: Platelet Count 90 T/CUMM (130-400)
[2019-04-20 07:43] LABS: Calcium 8.6 MG/DL (8.5-10.1); Osmolality,Calculated 286.3 MOS/KG (273-304)
[2019-04-20 07:46] LABS: Hypochromasia 1+; Platelet Estimate Decreased
[2019-04-20 07:47] LABS: Ovalocytes Slight
[2019-04-20] MEDS: FLUTICASONE 50 MCG NASAL SPRAY 16 GM BOTTLE BOTH NARES SCH (09:19)
[2019-04-20] MEDS: FOLIC ACID 1 MG TABLET PO SCH (09:20)
[2019-04-20] MEDS: ATORVASTATIN 20 MG TABLET PO SCH (09:20)
[2019-04-20] MEDS: PANTOPRAZOLE 40 MG TABLET PO SCH (09:20)
[2019-04-20] MEDS: amLODIPine 5 MG TABLET PO SCH (09:20)
[2019-04-20] MEDS: METOPROLOL SUCCINATE XL 50 MG TABLET PO SCH (09:20)
[2019-04-20] MEDS: CLOPIDOGREL 75 MG TABLET PO SCH (09:20)
[2019-04-20] MEDS: ARIPiprazole 10 MG TABLET PO SCH (09:20)
[2019-04-20] MEDS: CHOLECALCIFEROL 1,000 UNIT TABLET PO SCH (09:21)
[2019-04-20] MEDS: DULoxetine 30 MG CAPSULE PO SCH (09:21)
[2019-04-20] MEDS: Ibrutinib [Imbruvica] 140 MG PO SCH ×3 (09:56→21:36)
[2019-04-20] MEDS: AMIKACIN 500 MG in SODIUM CHLORIDE 0.9% 100 ML IV SCH (14:50)
[2019-04-20] MEDS: ENOXAPARIN 30 MG/0.3 ML SYRINGE SUBCUT SCH (17:45)
[2019-04-20] MEDS: ACETAMINOPHEN 325 MG TABLET PO PRN (20:59)
[2019-04-20] MEDS: TAMSULOSIN 0.4 MG CAPSULE PO SCH (21:00)
[2019-04-21 05:04] LABS: Basophils # 0.1 10*3/uL (0.0-0.2); Basophils % 0.6 % (0.0-0.8); Eosinophils # 0.1 10*3/uL (0.0-0.87); Eosinophils % 1.3 % (0.00-10.9); Hematocrit 30.5 VOL% (42.0-52.0); Hemoglobin 9.3 GM/DL (14.0-18.0); Immature Granulocytes % 0.9 %; Immature Granulocytes Absolute 0.08 #; Lymphocytes # 3.8 10*3/uL (1.4-4.0); Lymphocytes % 42.9 % (21.2-54.2); Mean Corpuscular HGB Conc 30.5 GM/DL (32-36); Mean Corpuscular Volume 95.9 FL (87-102); Mean Platelet Volume 12.8 FL (9.6-12.0); Monocytes % 9.4 % (1.7-12.7); Neutrophils % 44.9 % (38.7-73.9); Red Blood Count 3.18 MC/CUMM (3.8-5.5); Red Cell Distribution Width 17.3 % (9.3-17.3); White Blood Count 8.8 T/CUMM (4-12)
[2019-04-21 05:11] LABS: Platelet Count 93 T/CUMM (130-400)
[2019-04-21 05:23] LABS: Hypochromasia 1+; Ovalocytes Slight; Platelet Estimate Decreased
[2019-04-21 05:37] LABS: Calcium 8.5 MG/DL (8.5-10.1); Osmolality,Calculated 281.5 MOS/KG (273-304)
[2019-04-21] MEDS: SODIUM CHLORIDE 0.9% 1,000 ML IV SCH ×2 (06:53→17:45)
[2019-04-21] MEDS: LEVOTHYROXINE 25 MCG TABLET PO SCH (06:54)
[2019-04-21] MEDS: PANTOPRAZOLE 40 MG TABLET PO SCH (09:46)
[2019-04-21] MEDS: FOLIC ACID 1 MG TABLET PO SCH (09:46)
[2019-04-21] MEDS: CLOPIDOGREL 75 MG TABLET PO SCH (09:46)
[2019-04-21] MEDS: ARIPiprazole 10 MG TABLET PO SCH (09:46)
[2019-04-21] MEDS: DULoxetine 30 MG CAPSULE PO SCH (09:46)
[2019-04-21] MEDS: METOPROLOL SUCCINATE XL 50 MG TABLET PO SCH (09:46)
[2019-04-21] MEDS: CHOLECALCIFEROL 1,000 UNIT TABLET PO SCH (09:47)
[2019-04-21] MEDS: ATORVASTATIN 20 MG TABLET PO SCH (09:47)
[2019-04-21] MEDS: amLODIPine 5 MG TABLET PO SCH (09:47)
[2019-04-21] MEDS: Ibrutinib [Imbruvica] 140 MG PO SCH ×3 (09:53→20:39)
[2019-04-21] MEDS: FLUTICASONE 50 MCG NASAL SPRAY 16 GM BOTTLE BOTH NARES SCH (09:53)
[2019-04-21] MEDS ORDERED: TUBERCULIN SKIN TEST 0.1 ML SYRINGE INTRADERM ONE (15:22)
[2019-04-21] MEDS: ENOXAPARIN 30 MG/0.3 ML SYRINGE SUBCUT SCH (17:46)
[2019-04-21] MEDS: TAMSULOSIN 0.4 MG CAPSULE PO SCH (20:38)
[2019-04-21] MEDS: ACETAMINOPHEN 325 MG TABLET PO PRN (20:39)
[2019-04-22] MEDS: LEVOTHYROXINE 25 MCG TABLET PO SCH (05:33)
[2019-04-22] MEDS: ATORVASTATIN 20 MG TABLET PO SCH (09:21)
[2019-04-22] MEDS: DULoxetine 30 MG CAPSULE PO SCH (09:21)
[2019-04-22] MEDS: METOPROLOL SUCCINATE XL 50 MG TABLET PO SCH (09:22)
[2019-04-22] MEDS: PANTOPRAZOLE 40 MG TABLET PO SCH (09:22)
[2019-04-22] MEDS: amLODIPine 5 MG TABLET PO SCH (09:22)
[2019-04-22] MEDS: CHOLECALCIFEROL 1,000 UNIT TABLET PO SCH (09:23)
[2019-04-22] MEDS: ARIPiprazole 10 MG TABLET PO SCH (09:23)
[2019-04-22] MEDS: FOLIC ACID 1 MG TABLET PO SCH (09:23)
[2019-04-22] MEDS: CLOPIDOGREL 75 MG TABLET PO SCH (09:23)
[2019-04-22] MEDS: FLUTICASONE 50 MCG NASAL SPRAY 16 GM BOTTLE BOTH NARES SCH (09:24)
[2019-04-22] MEDS: SODIUM CHLORIDE 0.9% 1,000 ML IV SCH ×2 (09:27→09:28)
[2019-04-22] MEDS: Ibrutinib [Imbruvica] 140 MG PO SCH (09:28)
[2019-04-22 11:45] VITALS: BP 146/85
[2019-04-22] MEDS: AMIKACIN 500 MG in SODIUM CHLORIDE 0.9% 100 ML IV SCH (13:50)
== END 2019-04-22 15:22 | disposition home health service (06) | DRG 699 ==
LOC: EDBD → EDUNIT# → N.ED 12:11 → SUATTDRO 15:52 → N.EDINP 15:52 → N.4E 17:48
PROVIDERS: ADMIT Emergency Medicine; ATTEND Internal Medicine